=== PATIENT | female | born 1970 | race Caucasian/White ===

== ENCOUNTER 2018-12-28 23:11 | Emergency (ER) | payer SELFPAY ==
[~2018-12-28] VITALS: Ht 157.5 cm; Wt 72.6 kg
== END 2018-12-29 03:48 | disposition home or self-care (01) ==
LOC: ER 23:11
DX: M54.12 Radiculopathy, cervical region (principal); F17.210 Nicotine dependence, cigarettes, uncomplicated
CPT/HCPCS: 73030; 99283-25

== ENCOUNTER → 2021-05-19 | Outpatient (CLI) | payer OTHER | LOC: LAB 11:03 → LAB SHORT 11:03 | DX: J02.9 Acute pharyngitis, unspecified (principal) | CPT/HCPCS: 87081 ==